=== PATIENT | female | born 1980 | race Caucasian/White ===

== ENCOUNTER → 2019-05-14 10:05 | Outpatient (CLI) | payer OTHER, SELFPAY | PROVIDERS: Visit Provider Nurse Practitioner | DX: R30.0 Dysuria (principal) | CPT/HCPCS: 87086 ==

== ENCOUNTER → 2020-08-17 07:30 | Outpatient (CLI) | payer OTHER, SELFPAY ==
[2020-08-17] MEDS: COVID-19 VACC #1, MRNA(MOD) 100 MCG/0.5 ML VIAL IM (07:36)
== END ==
PROVIDERS: Visit Provider Internal Medicine
DX: Z23 Encounter for immunization (principal)
CPT/HCPCS: 0011A; 91301

== ENCOUNTER → 2020-09-14 07:29 | Outpatient (CLI) | payer OTHER, SELFPAY ==
[2020-09-14] MEDS: COVID-19 VACC #2, MRNA(MOD) 100 MCG/0.5 ML VIAL IM (07:32)
== END ==
PROVIDERS: Visit Provider Internal Medicine
DX: Z23 Encounter for immunization (principal)
CPT/HCPCS: 0012A; 91301

== ENCOUNTER → 2021-05-31 13:10 | Outpatient (CLI) | payer OTHER, SELFPAY | PROVIDERS: Visit Provider Nurse Practitioner | DX: N39.0 Urinary tract infection, site not specified (principal) | CPT/HCPCS: 87077; 87086; 87186 ==

== ENCOUNTER → 2021-06-14 12:38 | Outpatient (CLI) | payer OTHER, SELFPAY ==
[2021-06-14] MEDS: COVID-19 VACC #3, MRNA(MOD) 50 MCG/0.25 ML VIAL IM (12:43)
== END ==
PROVIDERS: PCP Family Medicine; Visit Provider Internal Medicine
DX: Z23 Encounter for immunization (principal)
CPT/HCPCS: 0013A; 91301

== ENCOUNTER 2024-04-02 14:43 | Emergency (ER) | payer OTHER, SELFPAY ==
[2024-04-02 14:57] VITALS: BP 159/87; PULSE 88; RESP 18; TEMP 36.1; O2SAT 100; BMI 50.8
[2024-04-02 15:14] LABS: Add Manual Diff / Slide Review NO; Basophils Absolute Auto 100 /uL (0-100); Basophils Percent Auto 0.3 % (0-2); Eosinophils Absolute Auto 0 /uL (0-450); Eosinophils Percent Auto 0.2 % (2-4); Lymphocytes Absolute Auto 1800 /uL (1100-4500); Lymphocytes Percent Auto 10.1 % (25-40); Mean Corpuscular HGB Conc 33.4 % (30-36); Mean Corpuscular Hemoglobin 26.9 PG (26-34); Mean Corpuscular Volume 80.6 fL (80-100); Monocytes Absolute Auto 300 /uL (0-900); Monocytes Percent Auto 1.8 % (3-14); Neutrophils Absolute Auto 15300 /uL (1500-7000); Neutrophils Percent Auto 87.6 % (50-75); Platelet Count 397 X10^3/uL (150-400); Red Blood Cell Count 4.84 X10^6/uL (4.0-5.2); Red Cell Distribution Width 15.4 % (11.6-14.8); White Blood Cell Count 17.5 X10^3/uL (4.5-11.0)
[2024-04-02 15:25] LABS: Alanine Aminotransferase 21 IU/L (<35); Albumin 4.3 g/dL (3.5-5.0); Albumin Globulin Ratio 1.3 (1.0-2.8); Alkaline Phosphatase 113 U/L (38-126); Aspartate Aminotransferase 19 IU/L (14-36); BUN Creatinine Ratio 15.5 (6-22); Bilirubin Total 0.8 mg/dL (0.2-1.3); Blood Urea Nitrogen 11 mg/dL (7-17); Calcium 9.2 mg/dL (8.4-10.2); Carbon Dioxide 17 mmol/L (22-32); Chloride 105 mmol/L (98-107); Estimated Glomerular Filt Rate > 60 mL/min (>60); Globulin 3.3 g/dL (1.7-4.1); Glucose 197 mg/dL (70-100); HEMOLYSIS < 15 (0-50); Lipase 51 U/L (23-300); Potassium 3.8 mmol/L (3.4-5.1); Sodium 134 mmol/L (137-145); Total Protein 7.6 g/dL (6.3-8.2)
[2024-04-02 15:51] LABS: Urine Volume 10mL (spun)
[2024-04-02 15:53] LABS: Bacteria Urine Moderate (10-30); Culture Indicated Urine Cult Not Indicated; Mucus Urine 1+ (Negative); RBC Urine 0-1/HPF (0-5/HPF); Squamous Epithelial Cell Urine 1-5 /HPF (0-5/HPF); WBC Urine 0-1/HPF (0-5/HPF)
[2024-04-02 18:50] VITALS: BP 164/93; PULSE 68; PULSE 72; RESP 17; O2SAT 100; O2SAT 98
[2024-04-02] MEDS: SODIUM CHLORIDE 0.9% 1,000 ML 1000 ML IV ×2 (18:53→19:57)
[2024-04-02] MEDS: ONDANSETRON 4 MG/2 ML INJ IV (18:53)
[2024-04-02 19:00] VITALS: PULSE 68; O2SAT 100
[2024-04-02 19:01] VITALS: BP 160/70; PULSE 73; O2SAT 100
--- NOTE | 2024-04-02 19:30 | ED.ABDPAIN ---
HPI - Abdominal Pain General Chief Complaint: Abdominal Pain Stated Complaint: abd px, nausea, vomiting Time Seen by Provider: 04/02/24 19:22 Source: patient Mode of arrival: Ambulatory History of Present Illness HPI narrative: Patient is a 44-year-old female history of appendectomy presenting today with a few days of nausea vomiting diarrhea. She reports it started roughly after she had crab a few days ago. She has been unable to keep anything down. She has had about 10 episodes of diarrhea total but really vomiting. No fever or chills no one else is sick. She has not passed out no dizziness or lightheadedness. She is some abdominal cramping but no severe pain. Related Data Home Medications Medication Instructions Recorded Confirmed mometasone-formoterol [Dulera] inhalation 05/14/19 05/14/19 escitalopram oxalate 10 mg tablet 10 mg PO DAILY 04/02/24 04/02/24 Previous Rx's Medication Instructions Recorded ondansetron 4 mg disintegrating 4 mg PO Q8H PRN nausea and 04/02/24 tablet vomiting #10 tabs Allergies Allergy/AdvReac Type Severity Reaction Status Date / Time No Known Drug Allergies Allergy Verified 04/02/24 14:56 Patient History Social History Smoking Status: Never smoker Smoking Status: Never smoker Substance Use Type: marijuana Exam Initial Vital Signs Initial Vital Signs: Vital Signs Temperature 97 F L 04/02/24 14:57 Pulse Rate 88 04/02/24 14:57 Respiratory Rate 18 04/02/24 14:57 Blood Pressure 159/87 H 04/02/24 14:57 Pulse Oximetry 100 04/02/24 14:57 Oxygen Delivery Method Room Air 04/02/24 14:57 GENERAL: Alert 44-year-old female not feel well and in no acute distress. HEENT: Head atraumatic,EOMI, pupils reactive, face symmetric, moist mucous membranes CARDIOVASCULAR: Regular rate and rhythm without murmurs, rubs or gallops. RESPIRATORY: Breath sounds equal bilaterally, no wheezes rales or rhonchi. ABDOMEN: Soft, nontender. Normoactive bowel sounds all 4 quadrants. No guarding or rebound. EXTREMITIES: Normal range of motion, no clubbing or edema. Neurovascularly intact NEUROLOGICAL: Alert and oriented x4.Normal gait and speech. SKIN: Warm, dry, no laceration, no petechiae, no rashes or lesions. Course Orders Ordered: Discontinued Medications Sodium Chloride (Normal Saline 0.9%) 1,000 mls @ 1,000 mls/hr IV BOLUS ONE Stop: 04/02/24 19:46 Last Infusion: 04/02/24 19:55 Dose: Infused Documented By: Admin: 04/02/24 18:53 Dose: 1,000 mls/hr Documented By: TEJA Sodium Chloride (Normal Saline 0.9%) 1,000 mls @ 1,000 mls/hr IV BOLUS ONE Stop: 04/02/24 20:39 Last Infusion: 04/02/24 21:05 Dose: Infused Documented By: Admin: 04/02/24 19:57 Dose: 1,000 mls/hr Documented By: LOYD Metoclopramide HCl (Metoclopramide 10 Mg/2 Ml Inj) 10 mg IV NOW ONE Stop: 04/02/24 19:41 Last Admin: 04/02/24 19:56 Dose: 10 mg Documented By: LOYD Ondansetron HCl (Ondansetron 4 Mg/2 Ml Inj) 4 mg IV NOW PRN PRN Reason: Nausea And Vomiting Last Admin: 04/02/24 18:53 Dose: 4 mg Documented By: TEJA Ondansetron HCl (Ondansetron 4 Mg Odt) 4 mg PO NOW PRN PRN Reason: Nausea And Vomiting Ondansetron HCl (Ondansetron 4 Mg Odt Prepack) 1 bottle MISC DIRECTED ONE Stop: 04/02/24 21:24 Last Admin: 04/02/24 21:30 Dose: 1 bottle Documented By: Pantoprazole Sodium (Pantoprazole 40 Mg Vial) 40 mg IV NOW ONE Stop: 04/02/24 19:41 Last Admin: 04/02/24 19:57 Dose: 40 mg Documented By: LOYD Vital Signs Vital signs: Vital Signs - 8 hr 04/02/24 18:50 04/02/24 18:50 04/02/24 19:00 Pulse Rate 68 72 68 Respiratory Rate 17 Blood Pressure 164/93 H Pulse Oximetry 98 100 100 Oxygen Delivery Method Room Air 04/02/24 19:01 04/02/24 19:01 04/02/24 21:35 Pulse Rate 73 92 H Respiratory Rate 16 Blood Pressure 160/70 H 155/73 H Pulse Oximetry 100 100 Oxygen Delivery Method Room Air Room Air MDM - Abdominal Pain Lab Data 04/02/24 15:08 04/02/24 15:08 Labs: Lab Results 04/02/24 04/02/24 Range/Units 15:08 15:17 WBC 17.5 H (4.5-11.0) X10^3/uL RBC 4.84 (4.0-5.2) X10^6/uL Hgb 13.0 (12.0-16.0) g/dL Hct 39.0 (36-46) % MCV 80.6 (80-100) fL MCH 26.9 (26-34) PG MCHC 33.4 (30-36) % RDW 15.4 H (11.6-14.8) % Plt Count 397 (150-400) X10^3/uL Neut % (Auto) 87.6 H (50-75) % Lymph % (Auto) 10.1 L (25-40) % [place] % (Auto) 1.8 L (3-14) % Eos % (Auto) 0.2 L (2-4) % Baso % (Auto) 0.3 (0-2) % Neut # (Auto) 12873 H (5724-6221) /uL Lymph # (Auto) 1800 (4421-5139) /uL [place] # (Auto) 300 (0-900) /uL Eos # (Auto) 0 (0-450) /uL Baso # (Auto) 100 (0-100) /uL Sodium 134 L (137-145) mmol/L Potassium 3.8 (3.4-5.1) mmol/L Chloride 105 (98-107) mmol/L Carbon Dioxide 17 L (22-32) mmol/L BUN 11 (7-17) mg/dL Creatinine 0.71 (0.52-1.04) mg/dL Estimated GFR > 60 (>60) mL/min BUN/Creatinine Ratio 15.5 (6-22) Glucose 197 H (70-100) mg/dL Calcium 9.2 (8.4-10.2) mg/dL Total Bilirubin 0.8 (0.2-1.3) mg/dL AST 19 (14-36) IU/L ALT 21 (<35) IU/L Alkaline Phosphatase 113 (38-126) U/L Total Protein 7.6 (6.3-8.2) g/dL Albumin 4.3 (3.5-5.0) g/dL Globulin 3.3 (1.7-4.1) g/dL Albumin/Globulin Ratio 1.3 (1.0-2.8) Lipase 51 (23-300) U/L Urine RBC 0-1/hpf (0-5/HPF) Urine WBC 0-1/hpf (0-5/HPF) Ur Squamous Epith Cells 1-5 /hpf (0-5/HPF) Urine Bacteria Moderate (10-30) H (None) Urine Mucus 1+ H (Negative) Ur Culture Indicated? Cult not indicated Vol Urine Centrifuged 10ml (spun) Point of care testing: Point of Care Testing Test Results Negative Urine Dip Bedside Urine Glucose Negative Bedside Urine Bilirubin - Negative Bedside Urine Ketone +++ 80 Urine Specific [place] 1.025 Bedside Urine Occult Blood +/- Bedside Urine pH 6.0 Bedside Urine Protein + 30 Bedside Urine Urobilinogen - Negative Bedside Urine Nitrite - Negative Bedside Urine Leukocytes - Negative Esterase MDM Narrative Medical decision making narrative: Patient is a healthy 44-year-old female who presents today with nausea vomiting diarrhea. She has had gastroenteritis like symptoms ongoing for a few days and only getting worse. Vitals are stable but she is actively vomiting and has filled multiple vomit bags Blood work has been reviewed CBC does show leukocytosis 17.5 secondary to stress vomiting rule out given bacterial infection, WBC 17.5 hemoglobin 13.0 hematocrit 39 platelets 397 CMP no significant MIRYAM or electrolyte abnormality, sodium 134 potassium 3.8 chloride 105 carbon dioxide 17 BUN 11 creatinine 0.7 glucose 197 bilirubin 0.8 AST 19 ALT 21 lipase 50 Urinalysis no evidence of UTI Patient presenting today with gastroenteritis symptoms. She has been given IV fluids Protonix Zofran and Reglan. Patient has had significant improvement she is tolerating fluids she is ambulatory. No longer vomiting. Overall feels much better. We discussed oral rehydration techniques. She has not had any diarrhea here. I do suspect symptoms are most likely related to gastroenteritis abdomen remains soft and nontender she has not required anything for pain I see no need for imaging at this time Discharge Plan Departure Patient Disposition: Home Clinical Impression: Gastroenteritis Instructions: DI for Viral Gastroenteritis -- Adult Activity Restrictions/Additional Instructions: *You have been diagnosed with gastroenteritis *What to do: Increase fluids as tolerated hopefully this starts to get better *Continue to take medications as directed Zofran 4 mg every 8 hours if needed for nausea or vomiting *Follow up with your primary care provider in 2-3 days or call [phone] *Return to ER if you should have persistent vomiting dizziness lightheadedness passing out or any new, worsening or concerning symptoms Prescriptions: New ondansetron 4 mg tablet,disintegrating 4 mg PO Q8H PRN (Reason: nausea and vomiting) Qty: 10 0RF No Action mometasone-formoterol INHALATION escitalopram oxalate 10 mg tablet 10 mg PO DAILY Referrals: Hubert Carrington MD [Primary Care Provider] - Stand Alone Forms: Patient Portal/API
[2024-04-02] MEDS: METOCLOPRAMIDE 10 MG/2 ML INJ IV (19:56)
[2024-04-02] MEDS: PANTOPRAZOLE 40 MG VIAL IV (19:57)
[2024-04-02] MEDS: ONDANSETRON 4 MG ODT PREPACK 1 BOTTLE MISC (21:30)
[2024-04-02 21:35] VITALS: BP 155/73; PULSE 92; RESP 16; O2SAT 100
== END 2024-04-02 21:35 | disposition home or self-care (01) ==
PROVIDERS: Emergency Medicine; Emergency Provider Emergency Medicine; PCP Family Medicine
DX: K52.9 Noninfective gastroenteritis and colitis, unspecified (principal); R10.9 Unspecified abdominal pain
CPT/HCPCS: 36415; 80053; 81003; 81015; 81025; 83690; 85025; 96361; 96374; 96375; 99284; J2405; J2470; J2765

== ENCOUNTER 2024-04-04 05:47 | Emergency (ER) | payer OTHER, SELFPAY ==
[2024-04-04] VITALS (7 sets, daily range): BP systolic 135–161; BP diastolic 71–87; PULSE 68–102; RESP 22; TEMP 36.8; O2SAT 95–100; BMI 50.8
--- NOTE | 2024-04-04 05:59 | DI.CT.S_ITS ---
PROCEDURE: CT ABDOMEN PELVIS W CON INDICATIONS: LLQ PAIN TECHNIQUE: After the administration of intravenous contrast, axial sections acquired from the lung bases to the pubic symphysis. Coronal and sagittal reformats were performed. For radiation dose reduction, the following was used: automated exposure control, adjustment of mA and/or kV according to patient size. COMPARISON: [facility], CT, CT CHEST W CON, 04/04/2024, 6:36. FINDINGS: Image quality: Diagnostic. Lower Chest: Partially visualized low-attenuation mass in the anterior right middle lobe. ABDOMEN: Liver: No solid mass. Hepatic steatosis. Gallbladder: No radiopaque gallstones or wall thickening. Biliary ducts: No biliary dilation. Pancreas: No ductal dilation. Spleen: Size is within normal limits. Adrenal Glands: No adrenal nodules. Kidneys and Ureters: No hydronephrosis. No solid mass. No complex renal cystic lesion which requires follow up. Stomach and Bowel: There is a minimal appearance of thickening and stranding within the distal descending/proximal sigmoid colon with diverticula. No perforation. No abscess. Peritoneum: No abnormal intraperitoneal fluid. No free air. Ventral Wall: No significant ventral hernia. Abdominal Nodes: No retroperitoneal or mesenteric adenopathy by size criteria. Vessels: Aorta and inferior vena cava are normal in size. PELVIS: Pelvic Organs: IUD is present. Bladder: No bladder wall thickening, accounting for underdistention. Pelvic Nodes: No enlarged lymph nodes. Miscellaneous: No inguinal hernias are seen. Bones: No aggressive osseous abnormality. IMPRESSION: Mild inflammatory change with diverticula in the left colon as above most consistent with colitis secondary to diverticulitis. No perforation, free fluid or abscess. Partially visualized right lung mass. Please see CT chest report for further details. Dictated by: Sasha Mathew M.D. on 04/04/2024 at 12:50 Approved by: Sasha Mathew M.D. on 04/04/2024 at 12:52
--- NOTE | 2024-04-04 06:00 | ED_ITS ---
HPI - Abdominal Pain <Keysha Orlando MD - Last Filed: 04/05/24 01:40> General Chief Complaint: Nausea/Vomiting/Diarrhea Stated Complaint: can't keep food down was here sat for same thing Time Seen by Provider: 04/04/24 05:48 History of Present Illness HPI narrative: 44-year-old female with history of asthma presents by private vehicle from home for nausea, vomiting, left-sided abdominal pain. Patient is seen in the emergency department 2 days prior for same complaint. She underwent laboratory work that showed leukocytosis thought to be secondary to stress response. She was given antiemetics and IV fluids and discharged home with Zofran. Patient states that she has been able to keep liquids down, but can not tolerate solid foods. She states that she was told to come back to the emergency department if she was in getting better, so she is here today for repeat evaluation. Related Data Home Medications Medication Instructions Recorded Confirmed mometasone-formoterol [Dulera] inhalation 05/14/19 05/14/19 escitalopram oxalate 10 mg tablet 10 mg PO DAILY 04/02/24 04/02/24 Previous Rx's Medication Instructions Recorded ondansetron 4 mg disintegrating 4 mg PO Q8H PRN nausea and 04/02/24 tablet vomiting #10 tabs metoclopramide HCl 10 mg tablet 10 mg PO Q6H PRN nausea and 04/04/24 vomiting #14 tabs Allergies Allergy/AdvReac Type Severity Reaction Status Date / Time No Known Drug Allergies Allergy Verified 04/02/24 14:56 Patient History <Keysha Orlando MD - Last Filed: 04/05/24 01:40> Social History Smoking Status: Never smoker Smoking Status: Never smoker Substance Use Type: marijuana Exam <Keysha Orlando MD - Last Filed: 04/05/24 01:40> Initial Vital Signs Initial Vital Signs: Vital Signs Temperature 98.2 F 04/04/24 05:58 Pulse Rate 102 H 04/04/24 05:58 Respiratory Rate 22 04/04/24 05:58 Blood Pressure 135/71 04/04/24 05:58 Pulse Oximetry 99 04/04/24 05:58 Oxygen Delivery Method Room Air 04/04/24 05:58 Const: Awake, alert, no acute distress Cardiac: regular rate, regular rhythm RESP: unlabored, clear bilaterally, no wheezing GI: Soft, nontender, nondistended, no rebound, no guarding Skin: Warm, Dry, intact, no rashes Neuro: AO x3, CN II-XII grossly intact, moves all extremities <Talat Zazueta DO - Last Filed: 04/04/24 07:54> Initial Vital Signs Initial Vital Signs: Vital Signs Temperature 98.2 F 04/04/24 05:58 Pulse Rate 102 H 04/04/24 05:58 Respiratory Rate 22 04/04/24 05:58 Blood Pressure 135/71 04/04/24 05:58 Pulse Oximetry 99 04/04/24 05:58 Oxygen Delivery Method Room Air 04/04/24 05:58 Course <Keysha Orlando MD - Last Filed: 04/05/24 01:40> Orders Ordered: Discontinued Medications Droperidol (Droperidol 5 Mg/2 Ml Vial) 2.5 mg IV NOW ONE Stop: 04/04/24 05:52 Last Admin: 04/04/24 06:20 Dose: 2.5 mg Documented By: ANGIE Sodium Chloride (Normal Saline 0.9%) 1,000 mls @ 1,000 mls/hr IV BOLUS ONE Stop: 04/04/24 06:50 Last Infusion: 04/04/24 07:54 Dose: Infused Documented By: Admin: 04/04/24 06:54 Dose: 1,000 mls/hr Documented By: ANGIE Potassium Chloride (Potassium Chloride 20 Meq Tab) 40 meq PO NOW ONE Stop: 04/04/24 06:45 Last Admin: 04/04/24 06:54 Dose: 40 meq Documented By: GC Vital Signs Vital signs: Vital Signs - 8 hr 04/04/24 05:58 04/04/24 06:18 04/04/24 06:43 Temperature 98.2 F Pulse Rate 102 H 78 76 Respiratory Rate 22 Blood Pressure 135/71 Pulse Oximetry 99 100 100 Oxygen Delivery Method Room Air 04/04/24 07:00 04/04/24 07:01 04/04/24 07:01 Temperature Pulse Rate 68 71 Respiratory Rate Blood Pressure 145/76 H Pulse Oximetry 100 100 Oxygen Delivery Method <Talat Zazueta DO - Last Filed: 04/04/24 07:54> Orders Ordered: Discontinued Medications Droperidol (Droperidol 5 Mg/2 Ml Vial) 2.5 mg IV NOW ONE Stop: 04/04/24 05:52 Last Admin: 04/04/24 06:20 Dose: 2.5 mg Documented By: ANGIE Sodium Chloride (Normal Saline 0.9%) 1,000 mls @ 1,000 mls/hr IV BOLUS ONE Stop: 04/04/24 06:50 Last Infusion: 04/04/24 07:54 Dose: Infused Documented By: Admin: 04/04/24 06:54 Dose: 1,000 mls/hr Documented By: ANGIE Potassium Chloride (Potassium Chloride 20 Meq Tab) 40 meq PO NOW ONE Stop: 04/04/24 06:45 Last Admin: 04/04/24 06:54 Dose: 40 meq Documented By: ANGIE Vital Signs Vital signs: Vital Signs - 8 hr 04/04/24 05:58 04/04/24 06:18 04/04/24 06:43 Temperature 98.2 F Pulse Rate 102 H 78 76 Respiratory Rate 22 Blood Pressure 135/71 Pulse Oximetry 99 100 100 Oxygen Delivery Method Room Air 04/04/24 07:00 04/04/24 07:01 04/04/24 07:01 Temperature Pulse Rate 68 71 Respiratory Rate Blood Pressure 145/76 H Pulse Oximetry 100 100 Oxygen Delivery Method MDM - Abdominal Pain <Keysha Orlando MD - Last Filed: 04/05/24 01:40> Lab Data 04/04/24 06:03 04/04/24 06:03 Labs: Lab Results 04/04/24 Range/Units 06:03 WBC 13.8 H (4.5-11.0) X10^3/uL RBC 4.98 (4.0-5.2) X10^6/uL Hgb 13.4 (12.0-16.0) g/dL Hct 40.2 (36-46) % MCV 80.7 (80-100) fL MCH 26.9 (26-34) PG MCHC 33.3 (30-36) % RDW 15.4 H (11.6-14.8) % Plt Count 403 H (150-400) X10^3/uL Neut % (Auto) 74.2 (50-75) % Lymph % (Auto) 21.7 L (25-40) % [place] % (Auto) 3.6 (3-14) % Eos % (Auto) 0.2 L (2-4) % Baso % (Auto) 0.3 (0-2) % Neut # (Auto) 42241 H (1926-7424) /uL Lymph # (Auto) 3000 (5500-6886) /uL [place] # (Auto) 500 (0-900) /uL Eos # (Auto) 0 (0-450) /uL Baso # (Auto) 0 (0-100) /uL Sodium 130 L (137-145) mmol/L Potassium 3.1 L (3.4-5.1) mmol/L Chloride 100 (98-107) mmol/L Carbon Dioxide 20 L (22-32) mmol/L BUN 6 L (7-17) mg/dL Creatinine 0.62 (0.52-1.04) mg/dL Estimated GFR > 60 (>60) mL/min BUN/Creatinine Ratio 9.7 (6-22) Glucose 147 H (70-100) mg/dL Calcium 9.1 (8.4-10.2) mg/dL Total Bilirubin 0.9 (0.2-1.3) mg/dL AST 22 (14-36) IU/L ALT 20 (<35) IU/L Alkaline Phosphatase 106 (38-126) U/L Total Protein 8.0 (6.3-8.2) g/dL Albumin 4.2 (3.5-5.0) g/dL Globulin 3.8 (1.7-4.1) g/dL Albumin/Globulin Ratio 1.1 (1.0-2.8) Lipase 52 (23-300) U/L Point of care testing: Point of Care Testing Test Results Negative Urine Dip Bedside Urine Glucose Negative Bedside Urine Bilirubin - Negative Bedside Urine Ketone ++ 40 Urine Specific [place] 1.005 Bedside Urine Occult Blood - Negative Bedside Urine pH 7.5 Bedside Urine Protein - Negative Bedside Urine Urobilinogen - Negative Bedside Urine Nitrite - Negative Bedside Urine Leukocytes - Negative Esterase ECG Data Interpretation: Normal sinus rhythm at 71 beats per minute. Normal CO, normal QTC MDM Narrative Medical decision making narrative: Nontoxic appearing patient with persistent nausea and vomiting. States that she was able to tolerate liquids but not solids. Abdomen soft, no peritoneal signs, no marked tenderness to light or deep palpation. Patient reports concern that she may have diverticulitis, and states that numerous family members have had diverticulitis in the past. Based on exam I have low suspicion for diverticulitis at this time, however since this is a repeat visit and patient was symptomatic a CT of the abdomen and pelvis will be ordered for assessment. Preliminary review of CT abdomen/pelvis seems to show a right sided mass near the heart. CT chest IV ordered for additional assessment. Dr zazueta: Received turned over. Review patient's history and physical exam. Upon my evaluation patient states she was feeling much better. She does not know exactly what made her symptoms improve but it could be the medicine in the fluids here in the ER. CT scan of the abdomen shows a thickening of the sigmoid colon. She states she was not having diarrhea but is vomiting with solid foods. There was no indication for antibiotics. No indication for surgical consultation. There was also an incidental finding of a large pericardial soft tissue mass noted on the CT scan of the abdomen and confirmed on a subsequent CT scan of the chest. I did discuss this with the patient. We discussed that this is going to need more workup and that she needs to contact her primary doctor and is not related to a brought her in today. Patient expressed understanding and agreement with plan. <Talat Zazueta, DO - Last Filed: 04/04/24 07:54> Lab Data Labs: Lab Results 04/04/24 Range/Units 06:03 WBC 13.8 H (4.5-11.0) X10^3/uL RBC 4.98 (4.0-5.2) X10^6/uL Hgb 13.4 (12.0-16.0) g/dL Hct 40.2 (36-46) % MCV 80.7 (80-100) fL MCH 26.9 (26-34) PG MCHC 33.3 (30-36) % RDW 15.4 H (11.6-14.8) % Plt Count 403 H (150-400) X10^3/uL Neut % (Auto) 74.2 (50-75) % Lymph % (Auto) 21.7 L (25-40) % [place] % (Auto) 3.6 (3-14) % Eos % (Auto) 0.2 L (2-4) % Baso % (Auto) 0.3 (0-2) % Neut # (Auto) 18662 H (9174-7983) /uL Lymph # (Auto) 3000 (2553-8042) /uL [place] # (Auto) 500 (0-900) /uL Eos # (Auto) 0 (0-450) /uL Baso # (Auto) 0 (0-100) /uL Sodium 130 L (137-145) mmol/L Potassium 3.1 L (3.4-5.1) mmol/L Chloride 100 (98-107) mmol/L Carbon Dioxide 20 L (22-32) mmol/L BUN 6 L (7-17) mg/dL Creatinine 0.62 (0.52-1.04) mg/dL Estimated GFR > 60 (>60) mL/min BUN/Creatinine Ratio 9.7 (6-22) Glucose 147 H (70-100) mg/dL Calcium 9.1 (8.4-10.2) mg/dL Total Bilirubin 0.9 (0.2-1.3) mg/dL AST 22 (14-36) IU/L ALT 20 (<35) IU/L Alkaline Phosphatase 106 (38-126) U/L Total Protein 8.0 (6.3-8.2) g/dL Albumin 4.2 (3.5-5.0) g/dL Globulin 3.8 (1.7-4.1) g/dL Albumin/Globulin Ratio 1.1 (1.0-2.8) Lipase 52 (23-300) U/L Point of care testing: Point of Care Testing Test Results Negative Urine Dip Bedside Urine Glucose Negative Bedside Urine Bilirubin - Negative Bedside Urine Ketone ++ 40 Urine Specific [place] 1.005 Bedside Urine Occult Blood - Negative Bedside Urine pH 7.5 Bedside Urine Protein - Negative Bedside Urine Urobilinogen - Negative Bedside Urine Nitrite - Negative Bedside Urine Leukocytes - Negative Esterase Imaging Data CT scan - abdomen/pelvis: Radiologist's Impression: Partially imaged pericardial soft tissue attenuation mass measuring 7.7 x 6.[address] scan chest performed same day. Mild diffuse circumferential wall thickening of the sigmoid colon with mild pericolonic inflammatory changes. Findings likely related to early mild colitis versus diverticulitis. No pericolonic focal drainable collection or pneumoperitoneum. CT scan - chest: Radiologist's Impression: Large pericardial soft tissue attenuation mass measuring 7.6 x 7.1 cm. MDM Narrative Medical decision making narrative: Nontoxic appearing patient with persistent nausea and vomiting. States that she was able to tolerate liquids but not solids. Abdomen soft, no peritoneal signs. Patient reports concern that she may have diverticulitis, and states that numerous family members have had diverticulitis in the past. Based on exam I have low suspicion for diverticulitis at this time, however since this is a repeat visit and patient was symptomatic a CT of the abdomen and pelvis will be ordered for assessment. Preliminary review of CT abdomen/pelvis seems to show a right sided mass near the heart. CT chest IV ordered for additional assessment. Dr zazueta: Received turned over. Review patient's history and physical exam. Upon my evaluation patient states she was feeling much better. She does not know exactly what made her symptoms improve but it could be the medicine in the fluids here in the ER. CT scan of the abdomen shows a thickening of the sigmoid colon. She states she was not having diarrhea but is vomiting with solid foods. There was no indication for antibiotics. No indication for surgical consultation. There was also an incidental finding of a large pericardial soft tissue mass noted on the CT scan of the abdomen and confirmed on a subsequent CT scan of the chest. I did discuss this with the patient. We discussed that this is going to need more workup and that she needs to contact her primary doctor and is not related to a brought her in today. Patient expressed understanding and agreement with plan. Discharge Plan Departure Patient Disposition: Home Clinical Impression: Nausea and vomiting, Pericardial mass Instructions: Nausea and Vomiting-Adult Activity Restrictions/Additional Instructions: I do recommend a bland diet for the next couple days and focusing on fluids. You can start to advance your diet as tolerated. Use the metoclopramide/Reglan as needed. There was also the incidental finding of the pericardial mass noted on the CT scans. This is going to need follow-up with your primary care doctor to discuss further evaluation. Return to the emergency department for new symptoms. Prescriptions: New metoclopramide HCl 10 mg tablet 10 mg PO Q6H PRN (Reason: nausea and vomiting) Qty: 14 0RF No Action mometasone-formoterol INHALATION escitalopram oxalate 10 mg tablet 10 mg PO DAILY ondansetron 4 mg tablet,disintegrating 4 mg PO Q8H PRN (Reason: nausea and vomiting) Qty: 10 0RF Referrals: Hubert Carrington MD [Primary Care Provider] - Stand Alone Forms: Patient Portal/API
--- NOTE | 2024-04-04 06:06 | EKG_ITS ---
[facility] [address] [place] [id number] Test Date: 2024-04-04 Pat Name: Bhumika Bean Department: [facility] Room: Gender: Female Virtual Rec[employer]iter: : 1980 Requested By: Order Number: [id number] Reading MD: Christo Barcenas Measurements Intervals [place] Rate: 71 P: 47 TN: 122 QRS: 2 QRSD: 86 T: 9 QT: 436 QTc: 473 Interpretive Statements Normal sinus rhythm Minimal voltage criteria for LVH, may be normal variant ( R in aVL ) Electronically Signed On 04-04-2024 8:14:29 PDT by Christo Barcenas
[2024-04-04] MEDS: DROPERIDOL 5 MG/2 ML VIAL 2.5 MG IV (06:20)
[2024-04-04 06:23] LABS: Add Manual Diff / Slide Review NO; Basophils Absolute Auto 0 /uL (0-100); Basophils Percent Auto 0.3 % (0-2); Eosinophils Absolute Auto 0 /uL (0-450); Eosinophils Percent Auto 0.2 % (2-4); Hematocrit 40.2 % (36-46); Hemoglobin 13.4 g/dL (12.0-16.0); Lymphocytes Absolute Auto 3000 /uL (1100-4500); Lymphocytes Percent Auto 21.7 % (25-40); Mean Corpuscular HGB Conc 33.3 % (30-36); Mean Corpuscular Hemoglobin 26.9 PG (26-34); Mean Corpuscular Volume 80.7 fL (80-100); Monocytes Absolute Auto 500 /uL (0-900); Monocytes Percent Auto 3.6 % (3-14); Neutrophils Absolute Auto 10200 /uL (1500-7000); Neutrophils Percent Auto 74.2 % (50-75); Platelet Count 403 X10^3/uL (150-400); Red Blood Cell Count 4.98 X10^6/uL (4.0-5.2); Red Cell Distribution Width 15.4 % (11.6-14.8); White Blood Cell Count 13.8 X10^3/uL (4.5-11.0)
--- NOTE | 2024-04-04 06:32 | DI.CT.S_ITS ---
PROCEDURE: CT CHEST W CON INDICATIONS: R SIDED MASS, FURTHER ASSESSMENT TECHNIQUE: After the administration of intravenous contrast, 5 mm thick sections acquired from the pulmonary apices to the posterior costophrenic angles. 1 mm axial lung, 5 mm thick coronal and sagittal reformats and 7 mm axial MIP were acquired. For radiation dose reduction, the following was used: automated exposure control, adjustment of mA and/or kV according to patient size. COMPARISON: None. FINDINGS: Image quality: Diagnostic. Lower Neck: No enlarged lymph nodes. Thyroid: No thyroid nodules which require sonographic follow up, per consensus guidelines. Axillae: No enlarged lymph nodes. Chest Wall: Unremarkable. Bones: Unremarkable. Lungs and Pleura: No pneumothorax or pleural effusions. 8.2 x 7.5 cm heterogeneous mass in the anterior aspect the right middle lobe. There is obliteration of fat plane between the mass and the right heart border. It is causing right to left midline shift. Heart: Heart size is normal. No pericardial effusion. Thoracic Vessels: The aorta and pulmonary arteries demonstrate normal size. Mediastinum and Romi: No enlarged lymph nodes. Esophagus: No wall thickening. No hiatal hernia. Upper Abdomen: Visualized upper abdomen solid organs and bowel loops appear normal. IMPRESSION: Heterogeneous right anterior lung mass as above. No priors are available for comparison. Etiology is indeterminate although concerning for malignancy. Further evaluation with biopsy is recommended. Dictated by: Sasha Mathew M.D. on 04/04/2024 at 12:52 Approved by: Sasha Mathew M.D. on 04/04/2024 at 13:02
[2024-04-04 06:38] LABS: Alanine Aminotransferase 20 IU/L (<35); Albumin 4.2 g/dL (3.5-5.0); Albumin Globulin Ratio 1.1 (1.0-2.8); Alkaline Phosphatase 106 U/L (38-126); Aspartate Aminotransferase 22 IU/L (14-36); BUN Creatinine Ratio 9.7 (6-22); Bilirubin Total 0.9 mg/dL (0.2-1.3); Blood Urea Nitrogen 6 mg/dL (7-17); Calcium 9.1 mg/dL (8.4-10.2); Carbon Dioxide 20 mmol/L (22-32); Chloride 100 mmol/L (98-107); Estimated Glomerular Filt Rate > 60 mL/min (>60); Globulin 3.8 g/dL (1.7-4.1); Glucose 147 mg/dL (70-100); HEMOLYSIS 35 (0-50); Lipase 52 U/L (23-300); Potassium 3.1 mmol/L (3.4-5.1); Sodium 130 mmol/L (137-145)
[2024-04-04] MEDS: POTASSIUM CHLORIDE 20 MEQ TAB 40 MEQ PO (06:54)
[2024-04-04] MEDS: SODIUM CHLORIDE 0.9% 1,000 ML 1000 ML IV (06:54)
== END 2024-04-04 08:00 | disposition home or self-care (01) ==
PROVIDERS: Emergency Medicine; Emergency Provider Emergency Medicine; PCP Family Medicine
DX: R11.2 Nausea with vomiting, unspecified (principal); I31.8 Other specified diseases of pericardium
CPT/HCPCS: 36415; 71260; 74177; 80053; 81003; 81025; 83690; 85025; 93005; 96361; 96374; 99284; J1790; Q9967

== ENCOUNTER 2025-05-03 05:41 | Emergency (ER) | payer OTHER, SELFPAY ==
[2025-05-03] VITALS (13 sets, daily range): BP systolic 144–184; BP diastolic 76–106; PULSE 81–106; RESP 16–21; TEMP 36.7; O2SAT 95–100; BMI 51.5
--- NOTE | 2025-05-03 05:49 | ED.ABDPAIN ---
HPI - Abdominal Pain <Tomy Bustamante MD - Last Filed: 05/03/25 15:31> General Chief Complaint: Abdominal Pain Stated Complaint: Poss diverticulitis, pain, N/V, diarrhea Time Seen by Provider: 05/03/25 05:47 History of Present Illness HPI narrative: 45-year-old female with history of food allergies, had inadvertent exposure to [employer] food class, abdominal cramping recent since early Thursday morning, increasing abdominal pain generalized, some nausea without emesis. No black or red stools. She had labs drawn and saw her PCP yesterday, who clinically thought patient might have diverticulitis, no prior confirmed diagnosis by imaging of diverticulitis, no history of inflammatory bowel disease Crohn's disease or ulcerative colitis known to the patient. No injury or trauma new activities. She does not take blood thinner medications. She has not traveled or been camping. She is not around others with similar GI related symptoms. Denies painful frequent urination. Denies recent cough sore throat chest pain shortness of breath. Related Data Home Medications ?Medication ?Instructions ?Recorded ?Confirmed albuterol sulfate 90 mcg/actuation 2 puff inhalation Q4H PRN wheezing 05/03/25 05/03/25 aerosol inhaler diclofenac sodium 1 % topical gel 2 g topical 4XD PRN pain 05/03/25 05/03/25 mometasone-formoterol HFA 100 2 puff inhalation BID 05/03/25 05/03/25 mcg-5 mcg/actuation aerosol inhaler (Dulera) ondansetron 8 mg disintegrating 8 mg PO 3XD 05/03/25 05/03/25 tablet tamoxifen 20 mg tablet 20 mg PO DAILY 05/03/25 05/03/25 Previous Rx's ?Medication ?Instructions ?Recorded ondansetron 4 mg disintegrating 4 mg PO Q8H PRN nausea and 04/02/24 tablet vomiting #10 tabs ciprofloxacin HCl 500 mg tablet 500 mg PO Q12H #14 tabs 05/03/25 (Cipro) hydrocodone 5 mg-acetaminophen 325 1 tab PO Q4-6H PRN pain #20 tabs 05/03/25 mg tablet metronidazole 500 mg tablet 500 mg PO Q8H #21 tabs 05/03/25 Allergies Allergy/AdvReac Type Severity Reaction Status Date / Time No Known Drug Allergies Allergy Verified 05/03/25 05:46 Patient History <Tomy Bustamante MD - Last Filed: 05/03/25 15:31> Social History Smoking Status: Never smoker Exam <Tomy Bustamante MD - Last Filed: 05/03/25 15:31> Narrative Exam Narrative: GENERAL: Well-developed patient, in mild distress due to abdominal pain. Obesity, BMI noted 51.5 on triage. HEAD: Atraumatic. Normocephalic. EYES: Pupils equal round and reactive. Extraocular motions intact. No scleral icterus. No injection or drainage. ENT: Nose without bleeding, purulent drainage. Throat without erythema, tonsillar hypertrophy or exudate. Airway patent. NECK: Trachea midline. Non tender CARDIOVASCULAR: Regular rate and rhythm without murmurs, gallops, or rubs. RESPIRATORY: Clear to auscultation. Breath sounds equal bilaterally. No wheezes, rales, or rhonchi. GASTROINTESTINAL: Obese, nondistended, nonrigid, diffuse mild tenderness, bowel tones not particularly increased or decreased, without rushes or tinkles pattern. EXTREMITIES: No edema or joint tenderness. BACK: Nontender without deformity or crepitance. No flank tenderness. NEURO: AOx3. Motor functions grossly nonfocal. SKIN: No rash or erythema of visible areas Initial Vital Signs Initial Vital Signs: Vital Signs Temperature 98.1 F 05/03/25 05:48 Pulse Rate 84 05/03/25 05:48 Respiratory Rate 18 05/03/25 05:48 Blood Pressure 179/106 H 05/03/25 05:48 Pulse Oximetry 100 05/03/25 05:48 Oxygen Delivery Method Room Air 05/03/25 05:48 <Russell Bolaños DO - Last Filed: 05/03/25 10:22> Initial Vital Signs Initial Vital Signs: Vital Signs Temperature 98.1 F 05/03/25 05:48 Pulse Rate 84 05/03/25 05:48 Respiratory Rate 18 05/03/25 05:48 Blood Pressure 179/106 H 05/03/25 05:48 Pulse Oximetry 100 05/03/25 05:48 Oxygen Delivery Method Room Air 05/03/25 05:48 Course <Tomy Bustamante MD - Last Filed: 05/03/25 15:31> Orders Ordered: ED Orders 05/03/25 06:38 Urine Culture Stat Urine Microscopic Stat 05/03/25 07:42 CT abdomen pelvis w con Stat Discontinued Medications Diphenhydramine HCl (Diphenhydramine 50 Mg/Ml Vial) 50 mg IV NOW ONE Stop: 05/03/25 07:28 Last Admin: 05/03/25 08:14 Dose: 50 mg Documented By: SGF Droperidol (Droperidol 2.5 Mg/Ml Vial) 2.5 mg IV NOW ONE Stop: 05/03/25 07:28 Last Admin: 05/03/25 08:14 Dose: 2.5 mg Documented By: SGF Hydromorphone HCl (Hydromorphone Hcl 0.5 Mg/0.5 Ml Syringe) 0.5 mg IV NOW ONE Stop: 05/03/25 10:23 Last Admin: 05/03/25 10:26 Dose: 0.5 mg Documented By: SGF POTASSIUM CHLORIDE IN WATER (Potassium Cl 10 Meq/100 Ml Pia) 10 meq in 100 mls @ 100 mls/hr IV Q1H KG Stop: 05/03/25 08:44 Last Infusion: 05/03/25 10:07 Dose: Infused Documented By: Admin: 05/03/25 08:52 Dose: 100 mls/hr Documented By: Infusion: 05/03/25 08:35 Dose: Infused Documented By: Admin: 05/03/25 06:40 Dose: 100 mls/hr Documented By: AB Sodium Chloride (Normal Saline 0.9%) 1,000 mls @ 1,000 mls/hr IV BOLUS ONE Stop: 05/03/25 07:36 Last Infusion: 05/03/25 11:10 Dose: Infused Documented By: Admin: 05/03/25 06:40 Dose: 1,000 mls/hr Documented By: AB Ciprofloxacin (Cipro) 400 mg in 200 mls @ 200 mls/hr IV NOW ONE Stop: 05/03/25 09:44 Last Infusion: 05/03/25 10:07 Dose: Infused Documented By: Admin: 05/03/25 09:03 Dose: 200 mls/hr Documented By: SGF Metronidazole (Flagyl) 500 mg in 100 mls @ 100 mls/hr IV NOW ONE Stop: 05/03/25 09:44 Last Infusion: 05/03/25 11:11 Dose: Infused Documented By: Admin: 05/03/25 10:06 Dose: 100 mls/hr Documented By: MANUEL Metoclopramide HCl (Metoclopramide 10 Mg/2 Ml Inj) 10 mg IV NOW ONE Stop: 05/03/25 06:48 Last Admin: 05/03/25 06:49 Dose: 10 mg Documented By: Ondansetron HCl (Ondansetron 4 Mg/2 Ml Inj) 4 mg IV NOW ONE Stop: 05/03/25 06:00 Last Admin: 05/03/25 06:03 Dose: 4 mg Documented By: AKIN Ondansetron HCl (Ondansetron 4 Mg/2 Ml Inj) 4 mg IV NOW ONE Stop: 05/03/25 06:41 Vital Signs Vital signs: Vital Signs - 8 hr 05/03/25 08:16 05/03/25 08:18 05/03/25 08:18 Pulse Rate 82 84 Respiratory Rate Blood Pressure 176/98 H Pulse Oximetry 100 98 Oxygen Delivery Method 05/03/25 08:30 05/03/25 08:30 05/03/25 08:58 Pulse Rate 92 H Respiratory Rate 16 Blood Pressure 176/102 H 177/98 H Pulse Oximetry 100 Oxygen Delivery Method 05/03/25 08:58 05/03/25 09:00 05/03/25 09:00 Pulse Rate 96 H 93 H Respiratory Rate 21 16 Blood Pressure 179/94 H Pulse Oximetry 98 97 Oxygen Delivery Method 05/03/25 09:30 05/03/25 09:30 05/03/25 09:46 Pulse Rate 96 H Respiratory Rate 21 Blood Pressure 170/91 H 184/100 H Pulse Oximetry 96 Oxygen Delivery Method 05/03/25 09:46 05/03/25 10:00 05/03/25 10:00 Pulse Rate 106 H 99 H Respiratory Rate 18 Blood Pressure 177/95 H Pulse Oximetry 99 97 Oxygen Delivery Method 05/03/25 10:30 05/03/25 10:30 05/03/25 11:00 Pulse Rate 93 H Respiratory Rate 20 Blood Pressure 174/100 H 144/76 H Pulse Oximetry 100 Oxygen Delivery Method 05/03/25 11:00 05/03/25 11:16 Pulse Rate 101 H Respiratory Rate 16 Blood Pressure Pulse Oximetry 95 Oxygen Delivery Method Room Air <Russell Bolaños, DO - Last Filed: 05/03/25 10:22> Orders Ordered: ED Orders 05/03/25 06:38 Urine Culture Stat Urine Microscopic Stat 05/03/25 07:42 CT abdomen pelvis w con Stat Discontinued Medications Diphenhydramine HCl (Diphenhydramine 50 Mg/Ml Vial) 50 mg IV NOW ONE Stop: 05/03/25 07:28 Last Admin: 05/03/25 08:14 Dose: 50 mg Documented By: MARYF Droperidol (Droperidol 2.5 Mg/Ml Vial) 2.5 mg IV NOW ONE Stop: 05/03/25 07:28 Last Admin: 05/03/25 08:14 Dose: 2.5 mg Documented By: MANUEL Hydromorphone HCl (Hydromorphone Hcl 0.5 Mg/0.5 Ml Syringe) 0.5 mg IV NOW ONE Stop: 05/03/25 10:23 Last Admin: 05/03/25 10:26 Dose: 0.5 mg Documented By: MANUEL POTASSIUM CHLORIDE IN WATER (Potassium Cl 10 Meq/100 Ml Pia) 10 meq in 100 mls @ 100 mls/hr IV Q1H KG Stop: 05/03/25 08:44 Last Infusion: 05/03/25 10:07 Dose: Infused Documented By: Admin: 05/03/25 08:52 Dose: 100 mls/hr Documented By: Infusion: 05/03/25 08:35 Dose: Infused Documented By: Admin: 05/03/25 06:40 Dose: 100 mls/hr Documented By: Sodium Chloride (Normal Saline 0.9%) 1,000 mls @ 1,000 mls/hr IV BOLUS ONE Stop: 05/03/25 07:36 Last Infusion: 05/03/25 11:10 Dose: Infused Documented By: Admin: 05/03/25 06:40 Dose: 1,000 mls/hr Documented By: AB Ciprofloxacin (Cipro) 400 mg in 200 mls @ 200 mls/hr IV NOW ONE Stop: 05/03/25 09:44 Last Infusion: 05/03/25 10:07 Dose: Infused Documented By: Admin: 05/03/25 09:03 Dose: 200 mls/hr Documented By: MANUEL Metronidazole (Flagyl) 500 mg in 100 mls @ 100 mls/hr IV NOW ONE Stop: 05/03/25 09:44 Last Infusion: 05/03/25 11:11 Dose: Infused Documented By: Admin: 05/03/25 10:06 Dose: 100 mls/hr Documented By: MANUEL Metoclopramide HCl (Metoclopramide 10 Mg/2 Ml Inj) 10 mg IV NOW ONE Stop: 05/03/25 06:48 Last Admin: 05/03/25 06:49 Dose: 10 mg Documented By: Ondansetron HCl (Ondansetron 4 Mg/2 Ml Inj) 4 mg IV NOW ONE Stop: 05/03/25 06:00 Last Admin: 05/03/25 06:03 Dose: 4 mg Documented By: AKIN Ondansetron HCl (Ondansetron 4 Mg/2 Ml Inj) 4 mg IV NOW ONE Stop: 05/03/25 06:41 Vital Signs Vital signs: Vital Signs - 8 hr 05/03/25 08:16 05/03/25 08:18 05/03/25 08:18 Pulse Rate 82 84 Respiratory Rate Blood Pressure 176/98 H Pulse Oximetry 100 98 Oxygen Delivery Method 05/03/25 08:30 05/03/25 08:30 05/03/25 08:58 Pulse Rate 92 H Respiratory Rate 16 Blood Pressure 176/102 H 177/98 H Pulse Oximetry 100 Oxygen Delivery Method 05/03/25 08:58 05/03/25 09:00 05/03/25 09:00 Pulse Rate 96 H 93 H Respiratory Rate 21 16 Blood Pressure 179/94 H Pulse Oximetry 98 97 Oxygen Delivery Method 05/03/25 09:30 05/03/25 09:30 05/03/25 09:46 Pulse Rate 96 H Respiratory Rate 21 Blood Pressure 170/91 H 184/100 H Pulse Oximetry 96 Oxygen Delivery Method 05/03/25 09:46 05/03/25 10:00 05/03/25 10:00 Pulse Rate 106 H 99 H Respiratory Rate 18 Blood Pressure 177/95 H Pulse Oximetry 99 97 Oxygen Delivery Method 05/03/25 10:30 05/03/25 10:30 05/03/25 11:00 Pulse Rate 93 H Respiratory Rate 20 Blood Pressure 174/100 H 144/76 H Pulse Oximetry 100 Oxygen Delivery Method 05/03/25 11:00 05/03/25 11:16 Pulse Rate 101 H Respiratory Rate 16 Blood Pressure Pulse Oximetry 95 Oxygen Delivery Method Room Air MDM - Abdominal Pain <Tomy Bustamante MD - Last Filed: 05/03/25 15:31> Lab Data Attestation: I reviewed the patient's lab results. Lab results narrative: White blood cell count 9500, hemoglobin 13.0, platelets 417,000. Glucose 174. Normal renal function and serum carbon dioxide. Potassium 3.1 low, sodium 133 low. Liver functions and lipase normal. 05/03/25 06:05 05/03/25 06:05 Labs: Lab Results 05/03/25 05/03/25 Range/Units 06:05 06:38 WBC 9.5 (4.5-11.0) X10^3/uL RBC 5.13 (4.0-5.2) X10^6/uL Hgb 13.0 (12.0-16.0) g/dL Hct 39.4 (36-46) % MCV 76.8 L (80-100) fL MCH 25.4 L (26-34) PG MCHC 33.1 (30-36) % RDW 17.3 H (11.6-14.8) % Plt Count 417 H (150-400) X10^3/uL Neut % (Auto) 75.5 H (50-75) % Lymph % (Auto) 16.8 L (25-40) % [place] % (Auto) 5.3 (3-14) % Eos % (Auto) 1.3 L (2-4) % Baso % (Auto) 1.1 (0-2) % Neut # (Auto) 7200 H (9206-4764) /uL Lymph # (Auto) 1600 (4324-4772) /uL [place] # (Auto) 500 (0-900) /uL Eos # (Auto) 100 (0-450) /uL Baso # (Auto) 100 (0-100) /uL Sodium 133 L (137-145) mmol/L Potassium 3.1 L (3.4-5.1) mmol/L Chloride 99 (98-107) mmol/L Carbon Dioxide 23 (22-32) mmol/L BUN 14 (7-17) mg/dL Creatinine 0.75 (0.52-1.04) mg/dL Estimated GFR > 60 (>60) mL/min BUN/Creatinine Ratio 18.7 (6-22) Glucose 174 H (70-99) mg/dL Calcium 9.2 (8.4-10.2) mg/dL Total Bilirubin 0.8 (0.2-1.3) mg/dL AST 32 (14-36) IU/L ALT 26 (<35) IU/L Alkaline Phosphatase 97 (38-126) U/L Total Protein 8.1 (6.3-8.2) g/dL Albumin 4.5 (3.5-5.0) g/dL Globulin 3.6 (1.7-4.1) g/dL Albumin/Globulin Ratio 1.3 (1.0-2.8) Lipase 76 (23-300) U/L HCG, Quant < 2.39 mIU/mL Urine RBC None seen (0-5/HPF) Urine WBC 0-1/hpf (0-5/HPF) Ur Squamous Epith Cells 0-1 /hpf (0-5/HPF) Urine Bacteria Moderate (10-30) H (None) Ur Culture Indicated? Cult not indicated Vol Urine Centrifuged 10ml (spun) Point of care testing: Point of Care Testing Test Results Negative Urine Dip Bedside Urine Glucose Negative Bedside Urine Bilirubin - Negative Bedside Urine Ketone +++ 80 Urine Specific [place] 1.015 Bedside Urine Occult Blood - Negative Bedside Urine pH 6.0 Bedside Urine Protein - Negative Bedside Urine Urobilinogen - Negative Bedside Urine Nitrite - Negative Bedside Urine Leukocytes + 70 Esterase MDM Narrative Medical decision making narrative: 45-year-old female with history of morbid obesity, night shade class of food allergy with inadvertent recent exposure, crampy abdominal pain with some mucoid stool report, no black or red stools. Left lower quadrant discomfort after initial generalized discomfort. Tenderness more diffuse than localized, but mild. Requests pain medication. Labs pending. DDx consider diverticulitis, colitis, constipation, food allergy, UTI, ureteral stone, underwear cutter etiology, other. Patient requests med in location for pain control. IV Dilaudid, given Zofran prior. Initial labs: White blood cell count 9500, hemoglobin 13.0, platelets 417,000. Glucose 174. Normal renal function and serum carbon dioxide. Potassium 3.1 low, sodium 133 low. Liver functions and lipase normal. HCG neg. HCG resulted and negative, CT abdomen and pelvis ordered. 0700, CT abdomen and pelvis just ordered, still to be performed. Nauseated after 2 doses Zofran, we will give IV Reglan. Signed out to Dr. Bolaños. All lab work, vital signs, nurse triage note, medication list, previous ER visits and all imaging studies reviewed. CT scan abdomen and pelvis show acute uncomplicated diverticulitis patient given Cipro Flagyl here and will be discharged on Cipro and Flagyl and clear liquid diet and follow up PCP in 1-2 weeks if no improvement in symptoms. <Russell Bolaños, DO - Last Filed: 05/03/25 10:22> Lab Data Labs: Lab Results 05/03/25 05/03/25 Range/Units 06:05 06:38 WBC 9.5 (4.5-11.0) X10^3/uL RBC 5.13 (4.0-5.2) X10^6/uL Hgb 13.0 (12.0-16.0) g/dL Hct 39.4 (36-46) % MCV 76.8 L (80-100) fL MCH 25.4 L (26-34) PG MCHC 33.1 (30-36) % RDW 17.3 H (11.6-14.8) % Plt Count 417 H (150-400) X10^3/uL Neut % (Auto) 75.5 H (50-75) % Lymph % (Auto) 16.8 L (25-40) % [place] % (Auto) 5.3 (3-14) % Eos % (Auto) 1.3 L (2-4) % Baso % (Auto) 1.1 (0-2) % Neut # (Auto) 7200 H (8295-0487) /uL Lymph # (Auto) 1600 (0189-6741) /uL [place] # (Auto) 500 (0-900) /uL Eos # (Auto) 100 (0-450) /uL Baso # (Auto) 100 (0-100) /uL Sodium 133 L (137-145) mmol/L Potassium 3.1 L (3.4-5.1) mmol/L Chloride 99 (98-107) mmol/L Carbon Dioxide 23 (22-32) mmol/L BUN 14 (7-17) mg/dL Creatinine 0.75 (0.52-1.04) mg/dL Estimated GFR > 60 (>60) mL/min BUN/Creatinine Ratio 18.7 (6-22) Glucose 174 H (70-99) mg/dL Calcium 9.2 (8.4-10.2) mg/dL Total Bilirubin 0.8 (0.2-1.3) mg/dL AST 32 (14-36) IU/L ALT 26 (<35) IU/L Alkaline Phosphatase 97 (38-126) U/L Total Protein 8.1 (6.3-8.2) g/dL Albumin 4.5 (3.5-5.0) g/dL Globulin 3.6 (1.7-4.1) g/dL Albumin/Globulin Ratio 1.3 (1.0-2.8) Lipase 76 (23-300) U/L HCG, Quant < 2.39 mIU/mL Urine RBC None seen (0-5/HPF) Urine WBC 0-1/hpf (0-5/HPF) Ur Squamous Epith Cells 0-1 /hpf (0-5/HPF) Urine Bacteria Moderate (10-30) H (None) Ur Culture Indicated? Cult not indicated Vol Urine Centrifuged 10ml (spun) Point of care testing: Point of Care Testing Test Results Negative Urine Dip Bedside Urine Glucose Negative Bedside Urine Bilirubin - Negative Bedside Urine Ketone +++ 80 Urine Specific [place] 1.015 Bedside Urine Occult Blood - Negative Bedside Urine pH 6.0 Bedside Urine Protein - Negative Bedside Urine Urobilinogen - Negative Bedside Urine Nitrite - Negative Bedside Urine Leukocytes + [address] scan - abdomen/pelvis: Radiologist's Impression: [address] [address] [address] Scan Report Signed Patient: Bhumika Bean MR#: [id number] : 1980 Acct:[id number] Age/Sex: 45 / F Date of Service: 05/03/25 Loc: ED Accession Number: [id number] Procedure: CT abdomen pelvis w con Ordering Provider: Tomy Bustamante MD PROCEDURE: CT ABDOMEN PELVIS W CON INDICATIONS: abdominal painn mucus stools TECHNIQUE: After the administration of intravenous contrast, axial sections acquired from the lung bases to the pubic symphysis. Coronal and sagittal reformats were performed. For radiation dose reduction, the following was used: automated exposure control, adjustment of mA and/or kV according to patient size. COMPARISON: [facility], CT, CT ABDOMEN PELVIS W CON, 04/04/2024, 6:28. FINDINGS: Image quality: Diagnostic. Lower Chest: Postsurgical changes in the right lung, partially imaged. No consolidation or effusion. ABDOMEN: Liver: No solid mass. Gallbladder: No radiopaque gallstones or wall thickening. Biliary ducts: No biliary dilation. Pancreas: No ductal dilation. Spleen: Size is within normal limits. Metallic artifact at the splenic hilum. Adrenal Glands: No adrenal nodules. Kidneys and Ureters: No hydronephrosis. No solid mass. No complex renal cystic lesion which requires follow up. Stomach and Bowel: Fat stranding associated with a diverticulum in the descending colon. No adjacent fluid collection or free air. No colonic wall thickening. Appendix not identified. Surgical clips in the right lower quadrant likely associated with prior appendectomy. Peritoneum: No abnormal intraperitoneal fluid. No free air. Ventral Wall: No significant ventral hernia. Abdominal Nodes: No retroperitoneal or mesenteric adenopathy by size criteria. Vessels: Aorta and inferior vena cava are normal in size. PELVIS: Pelvic Organs: Unremarkable. Bladder: No bladder wall thickening, accounting for underdistention. Pelvic Nodes: No enlarged lymph nodes. Miscellaneous: No inguinal hernias are seen. Bones: No aggressive osseous abnormality. Lumbar spondylosis. IMPRESSION: Acute uncomplicated diverticulitis. Dictated by: Tyrone Perez M.D. on 05/03/2025 at 8:05 Approved by: Tyrone Perez M.D. on [facility] Narrative Medical decision making narrative: 45-year-old female with history of morbid obesity, night shade class of food allergy with inadvertent recent exposure, crampy abdominal pain with some mucoid stool report, no black or red stools. Left lower quadrant discomfort after initial generalized discomfort. Tenderness more diffuse than localized, but mild. Requests pain medication. Labs pending. DDx consider diverticulitis, colitis, constipation, food allergy, UTI, ureteral stone, underwear cutter etiology, other. Patient requests med in location for pain control. IV Dilaudid, given Zofran prior. Initial labs: White blood cell count 9500, hemoglobin 13.0, platelets 417,000. Glucose 174. Normal renal function and serum carbon dioxide. Potassium 3.1 low, sodium 133 low. Liver functions and lipase normal. HCG neg. CT abdomen and pelvis ordered. 0700, CT abdomen and pelvis ordered, still to be performed. Nauseated after 2 doses Zofran, we will give IV Reglan. Signed out to Dr. Bolaños. All lab work, vital signs, nurse triage note, medication list, previous ER visits and all imaging studies reviewed. CT scan abdomen and pelvis show acute uncomplicated diverticulitis patient given Cipro Flagyl here and will be discharged on Cipro and Flagyl and clear liquid diet and follow up PCP in 1-2 weeks if no improvement in symptoms. Discharge Plan Departure Patient Disposition: Home Clinical Impression: Hypokalemia, Diverticulitis Instructions: DI for Diverticulitis Activity Restrictions/Additional Instructions: Return with new or worsening symptoms. Take your medicines directed. Keep hydrated. Follow up PCP in 1-2 weeks if no improvement in symptoms. Prescriptions: New ciprofloxacin HCl [Cipro] 500 mg tablet 500 mg PO Q12H Qty: 14 0RF metronidazole 500 mg tablet 500 mg PO Q8H Qty: 21 0RF hydrocodone-acetaminophen 5-325 mg tablet 1 tab PO Q4-6H PRN (Reason: pain) Qty: 20 0RF No Action ondansetron 4 mg tablet,disintegrating 4 mg PO Q8H PRN (Reason: nausea and vomiting) Qty: 10 0RF ondansetron 8 mg tablet,disintegrating 8 mg PO 3XD albuterol sulfate 90 mcg/actuation HFA aerosol inhaler 2 puff INHALATION Q4H PRN (Reason: wheezing) tamoxifen 20 mg tablet 20 mg PO DAILY diclofenac sodium 1 % gel 2 g topical 4XD PRN (Reason: pain) Dulera 100-5 mcg/actuation HFA aerosol inhaler 2 puff INHALATION BID Referrals: Hubert Carrington MD [Primary Care Provider, Family Practice] Stand Alone Forms: Patient Portal/API, Work Release Note
[2025-05-03] MEDS: ONDANSETRON 4 MG/2 ML INJ IV (06:03)
[2025-05-03 06:13] LABS: Add Manual Diff / Slide Review NO; Hematocrit 39.4 % (36-46); Hemoglobin 13.0 g/dL (12.0-16.0); Lymphocytes Absolute Auto 1600 /uL (1100-4500); Mean Corpuscular HGB Conc 33.1 % (30-36); Mean Corpuscular Hemoglobin 25.4 PG (26-34); Mean Corpuscular Volume 76.8 fL (80-100); Platelet Count 417 X10^3/uL (150-400)
[2025-05-03 06:24] LABS: Alanine Aminotransferase 26 IU/L (<35); Albumin 4.5 g/dL (3.5-5.0); Albumin Globulin Ratio 1.3 (1.0-2.8); Alkaline Phosphatase 97 U/L (38-126); Blood Urea Nitrogen 14 mg/dL (7-17); Calcium 9.2 mg/dL (8.4-10.2); Carbon Dioxide 23 mmol/L (22-32); Chloride 99 mmol/L (98-107); Estimated Glomerular Filt Rate > 60 mL/min (>60); Globulin 3.6 g/dL (1.7-4.1); Glucose 174 mg/dL (70-99); HEMOLYSIS 47 (0-50); Lipase 76 U/L (23-300); Potassium 3.1 mmol/L (3.4-5.1); Sodium 133 mmol/L (137-145); Total Protein 8.1 g/dL (6.3-8.2)
[2025-05-03] MEDS: POTASSIUM CHLORIDE IN WATER 10 MEQ/100 ML PIGGYBACK 100 MEQ IV ×2 (06:40→08:52)
[2025-05-03] MEDS: SODIUM CHLORIDE 0.9% 1,000 ML 1000 ML IV (06:40)
[2025-05-03] MEDS: METOCLOPRAMIDE 10 MG/2 ML INJ IV (06:49)
[2025-05-03 06:59] LABS: HCG Quantitative /Beta subunit < 2.39 mIU/mL
[2025-05-03 07:00] LABS: Culture Indicated Urine Cult Not Indicated
--- NOTE | 2025-05-03 07:33 | PC.NURSE ---
Pt to CT
--- NOTE | 2025-05-03 07:42 | DI.CT.S_ITS ---
PROCEDURE: CT ABDOMEN PELVIS W CON INDICATIONS: abdominal painn mucus stools TECHNIQUE: After the administration of intravenous contrast, axial sections acquired from the lung bases to the pubic symphysis. Coronal and sagittal reformats were performed. For radiation dose reduction, the following was used: automated exposure control, adjustment of mA and/or kV according to patient size. COMPARISON: [facility], CT, CT ABDOMEN PELVIS W CON, 04/04/2024, 6:28. FINDINGS: Image quality: Diagnostic. Lower Chest: Postsurgical changes in the right lung, partially imaged. No consolidation or effusion. ABDOMEN: Liver: No solid mass. Gallbladder: No radiopaque gallstones or wall thickening. Biliary ducts: No biliary dilation. Pancreas: No ductal dilation. Spleen: Size is within normal limits. Metallic artifact at the splenic hilum. Adrenal Glands: No adrenal nodules. Kidneys and Ureters: No hydronephrosis. No solid mass. No complex renal cystic lesion which requires follow up. Stomach and Bowel: Fat stranding associated with a diverticulum in the descending colon. No adjacent fluid collection or free air. No colonic wall thickening. Appendix not identified. Surgical clips in the right lower quadrant likely associated with prior appendectomy. Peritoneum: No abnormal intraperitoneal fluid. No free air. Ventral Wall: No significant ventral hernia. Abdominal Nodes: No retroperitoneal or mesenteric adenopathy by size criteria. Vessels: Aorta and inferior vena cava are normal in size. PELVIS: Pelvic Organs: Unremarkable. Bladder: No bladder wall thickening, accounting for underdistention. Pelvic Nodes: No enlarged lymph nodes. Miscellaneous: No inguinal hernias are seen. Bones: No aggressive osseous abnormality. Lumbar spondylosis. IMPRESSION: Acute uncomplicated diverticulitis. Dictated by: Tyrone Perez M.D. on 05/03/2025 at 8:05 Approved by: Tyrone Perez M.D. on 05/03/2025 at 8:12
[2025-05-03] MEDS: droPERidol 2.5 MG/ML VIAL IV (08:14)
[2025-05-03] MEDS: diphenhydrAMINE 50 MG/ML VIAL IV (08:14)
[2025-05-03] MEDS: CIPROFLOXACIN 400 MG/200 ML PIGGYBACK 200 MG IV (09:03)
[2025-05-03] MEDS: metroNIDAZOLE 500 MG/100 ML PIGGYBACK 100 MG IV (10:06)
== END 2025-05-03 11:20 | disposition home or self-care (01) ==
PROVIDERS: Emergency Medicine; Emergency Provider Family Medicine; PCP Family Medicine
DX: K57.92 Diverticulitis of intestine, part unspecified, without perforation or abscess without bleeding (principal); E87.6 Hypokalemia
CPT/HCPCS: 36415; 74177; 80053; 81003; 81015; 81025; 83690; 84702; 85025; 87086; 96365; 96366; 96368; 96375; 99284; J0744; J1171; J1200; J1790; J2405; J2765; J7030; Q9967